=== PATIENT | male | born 1990 | race African-American/Black ===

== ENCOUNTER 2016-04-23 18:10 | Emergency (ER) | payer OTHER ==
[~2016-04-23] VITALS: Ht 175.3 cm; Wt 68.0 kg
[~2016-04-23 18:10] MED LIST: OXYC10TA8 PO; Z.0.WHEELSTD
[2016-04-23 18:13] VITALS: BP 141/82; PULSE 82; RESP 14; TEMP 98.2; O2SAT 99
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
== END 2016-04-23 20:26 | disposition left against medical advice (07) ==
LOC: NEPB 18:10
DX: M54.5 Low back pain (principal)
CPT/HCPCS: 99281

== ENCOUNTER 2017-09-02 20:01 | Emergency (ER) | payer SELFPAY ==
[2017-09-02 20:31] VITALS: BP 129/60; PULSE 62; RESP 18; TEMP 98.1; O2SAT 100
[2017-09-02 21:42] LABS: BILIRUBIN, URINE NEG (NEG); BLOOD, URINE NEG (NEG); GLUCOSE,URINE NEG (NEG); KETONE, URINE TRACE mg/dL (NEG); MUCUS URINE FEW /lpf (OCC); NITRITE,URINE NEG (NEG); SQUAMOUS EPITHELIAL CELL URINE <1 /hpf (0-5); URINE COLOR YELLOW (YELLW/STRAW); URINE LEUKOCYTE ESTERASE NEG (NEG)
== END 2017-09-02 21:32 | disposition left against medical advice (07) ==
LOC: NEPE 20:01
DX: R10.2 Pelvic and perineal pain (principal); Z53.21 Procedure and treatment not carried out due to patient leaving prior to being seen by health care provider
CPT/HCPCS: 81001; 99281